=== PATIENT | male | born 1990 | race Asian ===

== ENCOUNTER 2017-10-19 19:52 | Emergency (ER) | payer MEDICAID ==
[~2017-10-19] VITALS: Ht 177.8 cm; Wt 72.0 kg
[~2017-10-19 19:52] MED LIST: IBUP-1984 PO
[2017-10-19] MEDS ORDERED: normal saline 1000ml 1,000 ML IV ONE (20:50)
[2017-10-19 21:10] LABS: ABG BASE EXCESS -1.9 mmol/L (-2.0-3.0); ABG HCO3 23.1 mmol/L (22.0-26.0); ABG OXYGEN SATURATION 94.2 % (95-98); ABG PCO2 (T) 40.1 mmHg (35.0-48.0); ABG PH (T) 7.378 (7.350-7.450); ABG PO2 (T) 79.7 mmHg (83-108); ALLEN'S TEST Positive; FCOHb 1.1 % (0.5-1.5); FMetHb 0.3 % (0.3-1.12); FO2Hb 92.9 % (94-100); RESPIRATORY RATE (OBSERVED) 14 b/min; TOTAL HEMOGLOBIN 13.2 G/dl (14.0-18.0)
[2017-10-19] MEDS ORDERED: LORazepam 2 mg/ml vial IV ONE (21:15)
[2017-10-19 22:06] LABS: BASOPHILS % (AUTO) 0.4 % (0-1); EOSINOPHILS # (AUTO) 0.2 X10'3 (0-0.9); EOSINOPHILS % (AUTO) 2.3 % (0-6); HEMATOCRIT 39.5 % (42.0-52.0); HEMOGLOBIN 13.3 g/dl (14.0-17.9); LYMPHOCYTES # (AUTO) 2.1 X10'3 (1.1-4.8); LYMPHOCYTES % (AUTO) 21.9 % (21-51); MEAN CORPUSCULAR HGB CONC 33.7 % (33.0-36.5); MEAN CORPUSCULAR VOLUME 80.2 FL (78-98); MEAN PLATELET VOLUME 8.4 FL (7.4-10.4); MONOCYTES # (AUTO) 0.9 X10'3 (0-0.9); MONOCYTES % (AUTO) 9.6 % (2-12); NEUTROPHILS # (AUTO) 6.4 X10'3 (1.8-7.7); NEUTROPHILS % (AUTO) 65.8 % (42-75); PLATELET COUNT 186 X10'3 (140-440); RED BLOOD COUNT 4.93 X10'6 (4.70-6.10); RED CELL DISTRIBUTION WIDTH 13.2 % (11.5-14.5); WHITE BLOOD COUNT 9.7 X10'3 (4.5-11.0)
[2017-10-19] MEDS ORDERED: levetiracetam inj 1,500 MG in normal saline 100ml IV soln 85 ML IV STA (22:17)
[2017-10-19 22:23] LABS: ALANINE AMINOTRANSFERASE 22 U/L (12-78); ALBUMIN 3.4 G/DL (3.4-5.0); ALBUMIN/GLOBULIN RATIO 0.9 (1.1-1.5); ALKALINE PHOSPHATASE 69 IU/L (46-116); ANION GAP 9 (8-16); ASPARTATE AMINO TRANSFERASE 17 U/L (10-37); BILIRUBIN,TOTAL 1.3 MG/DL (0.1-1.0); BLOOD UREA NITROGEN 14 MG/DL (7-18); BUN/CREATININE RATIO 11.1 (5.4-32.0); CALCIUM 8.2 MG/DL (8.5-10.1); CHLORIDE 102 MMOL/L (99-107); CREATININE 1.26 MG/DL (0.60-1.10); GLUCOSE 255 MG/DL (70-104); POTASSIUM 4.2 MMOL/L (3.5-5.1); SODIUM 137 MMOL/L (135-145); TOTAL CARBON DIOXIDE 26.4 MMOL/L (24-32); TOTAL PROTEIN 7.1 G/DL (6.4-8.2); eGFR 69 ML/MIN
[2017-10-19 22:25] LABS: CREATINE KINASE 224 U/L (39-308); ETHANOL < 0.010 GM/DL (0.0-0.010); MAGNESIUM 1.9 MG/DL (1.5-2.4); PHENYTOIN (DILANTIN) 0.6 UG/ML (10.0-20.0); PHOSPHORUS 3.9 MG/DL (2.3-4.5)
[2017-10-19] MEDS ORDERED: levetiracetam 250mg tablet PO ONE (23:20)
[2017-10-19 23:49] VITALS: BP 123/94
[2017-10-20] MEDS ORDERED: KEP500T PO
[2017-10-22] MEDS ORDERED: GLIP10TA11 PO (03:51)
[2017-10-22] MEDS ORDERED: LORA1TAB PO (03:51)
[2017-10-22] MEDS ORDERED: METF500T PO (03:51)
== END 2017-10-20 00:33 | disposition home or self-care (01) ==
LOC: ER 19:54
DX: G40.89 Other seizures (principal); E11.9 Type 2 diabetes mellitus without complications; Z79.4 Long term (current) use of insulin; Z79.899 Other long term (current) drug therapy
CPT/HCPCS: 36415; 36600; 70450; 71045; 72070; 72100; 80053; 80185; 80320; 82140; 82550; 82803; 82948; 83735; 84100; 84484; 85018; 85025; 93005; 96374; 99285; J1953; J2060; J7030

== ENCOUNTER 2019-11-29 16:53 | Emergency (ER) | payer MEDICAID ==
[~2019-11-29] VITALS: Ht 177.8 cm; Wt 66.9 kg
[~2019-11-29 16:53] MED LIST changes: +GLIP10TA11 PO; +KEP500T PO
[2019-11-29] MEDS ORDERED: normal saline 1000ML IV soln IVB ONE (18:05)
[2019-11-29 18:10] LABS: BASOPHILS % (AUTO) 0.5 % (0-1); EOSINOPHILS % (AUTO) 0.5 % (0-6); HEMATOCRIT 44.4 % (42.0-52.0); HEMOGLOBIN 14.9 g/dl (14.0-17.9); LYMPHOCYTES # (AUTO) 1.9 X10'3 (1.1-4.8); LYMPHOCYTES % (AUTO) 30.5 % (21-51); MEAN CORPUSCULAR HEMOGLOBIN 27.8 PG (27.0-31.0); MEAN CORPUSCULAR HGB CONC 33.5 g/dL (33.0-36.5); MEAN PLATELET VOLUME 8.4 FL (7.4-10.4); MONOCYTES # (AUTO) 0.4 X10'3 (0-0.9); MONOCYTES % (AUTO) 6.9 % (2-12); NEUTROPHILS # (AUTO) 3.8 X10'3 (1.8-7.7); NEUTROPHILS % (AUTO) 61.6 % (42-75); PLATELET COUNT 217 X10'3 (140-440); RED BLOOD COUNT 5.34 X10'6 (4.70-6.10); RED CELL DISTRIBUTION WIDTH 13.5 % (11.5-14.5); WHITE BLOOD COUNT 6.2 X10'3 (4.5-11.0)
[2019-11-29 18:33] LABS: ALANINE AMINOTRANSFERASE 22 U/L (12-78); ALBUMIN 3.8 G/DL (3.4-5.0); ALBUMIN/GLOBULIN RATIO 1.1 (1.1-1.5); ALKALINE PHOSPHATASE 101 IU/L (46-116); ANION GAP 9 (8-16); ASPARTATE AMINO TRANSFERASE 12 U/L (10-37); BILIRUBIN,TOTAL 0.9 MG/DL (0.1-1.0); BLOOD UREA NITROGEN 16 MG/DL (7-18); BUN/CREATININE RATIO 14.3 (5.4-32.0); CALCIUM 8.8 MG/DL (8.5-10.1); CHLORIDE 97 MMOL/L (99-107); CREATININE 1.12 MG/DL (0.60-1.10); POTASSIUM 4.5 MMOL/L (3.5-5.1); SODIUM 131 MMOL/L (135-145); TOTAL CARBON DIOXIDE 24.7 MMOL/L (24-32); TOTAL PROTEIN 7.2 G/DL (6.4-8.2); eGFR 78 ML/MIN
[2019-11-29 18:39] LABS: GLUCOSE 524 MG/DL (70-104)
[2019-11-29] MEDS ORDERED: normal saline 1000ml 1,000 ML IV ONE (18:40)
[2019-11-29 18:53] LABS: CLARITY,URINE CLEAR (Clear); COLOR,URINE YELLOW (Yellow); GLUCOSE, URINE >=1000 mg/dl (Neg); KETONES,URINE NEGATIVE (Neg); LEUKOCYTE ESTERASE ,URINE NEGATIVE (Neg); NITRITES, URINE NEGATIVE (Neg); OCCULT BLOOD,URINE NEGATIVE (Neg); PROTEIN,URINE NEGATIVE (Neg); UA COLLECTION TYPE URINAL; UROBILINOGEN,URINE 0.2 E.U/dL (0.2-1.0)
[2019-11-29 19:00] LABS: BACTERIA,URINE NONE SEEN /HPF (Neg); RBC,URINE NONE SEEN /HPF (0-2); SQUAMOUS EPITHELIAL CELL,UR FEW /LPF (FEW); WBC,URINE NONE SEEN /HPF (0-4)
[2019-11-29] MEDS ORDERED: insulin regular, human 10 units/0.1 ml syringe SQ ONE (19:00)
[2019-11-29] MEDS ORDERED: insulin regular, human U-100 3ml vial - multi-dose SQ ONE (19:05)
[2019-11-29] MEDS ORDERED: INSU100I31 SUBCUT (19:57)
[2019-11-29 20:06] VITALS: BP 108/90
== END 2019-11-29 20:07 | disposition left against medical advice (07) ==
LOC: ER 16:53
DX: E11.65 Type 2 diabetes mellitus with hyperglycemia (principal); R11.2 Nausea with vomiting, unspecified; Z79.4 Long term (current) use of insulin; Z79.899 Other long term (current) drug therapy
CPT/HCPCS: 36415; 80053; 81001; 82948; 85025; 96360; 96372; 99283; J7030; J1815

== ENCOUNTER 2023-04-22 15:32 | Emergency (ER) | payer MEDICAID ==
[~2023-04-22] VITALS: Ht 177.8 cm; Wt 77.0 kg
[~2023-04-22 15:32] MED LIST changes: +INSU100I31 SUBCUT
[2023-04-22 15:47] VITALS: BP 115/83; PULSE 93; TEMP 97.8; O2SAT 98
[2023-04-22] MEDS ORDERED: ketorolac trometh inj. 60 MG/2 ML VIAL IM ONE (15:50)
[2023-04-22] MEDS ORDERED: CYCL-1 PO (15:53)
[2023-04-22] MEDS ORDERED: NAPR-56 PO (15:53)
[2023-04-22 16:10] VITALS: RESP 16
== END 2023-04-22 16:24 | disposition home or self-care (01) ==
LOC: ER 15:33
DX: M54.2 Cervicalgia (principal); M54.6 Pain in thoracic spine; E11.9 Type 2 diabetes mellitus without complications; Z79.899 Other long term (current) drug therapy; V89.2XXA Person injured in unspecified motor-vehicle accident, traffic, initial encounter; Y93.89 Activity, other specified; Y92.89 Other specified places as the place of occurrence of the external cause; Y99.8 Other external cause status
CPT/HCPCS: 96372; 99283; J1885

== ENCOUNTER 2023-07-29 13:34 | Emergency (ER) | payer MEDICAID ==
[~2023-07-29] VITALS: Ht 177.8 cm; Wt 77.9 kg
[~2023-07-29 13:34] MED LIST changes: +CYCL-1 PO
[2023-07-29 14:01] VITALS: BP 123/84; PULSE 86; TEMP 98.5; O2SAT 98
[2023-07-29] MEDS ORDERED: ketorolac trometh inj. 60 MG/2 ML VIAL IM ONE (15:35)
[2023-07-29] MEDS: dexamethasone sod phosphate 10mg/ml inj IM STA (15:42)
[2023-07-29 15:43] VITALS: RESP 18
[2023-07-29] MEDS: ketorolac tromethamine 15mg/ml inj. IM ONE (15:43)
[2023-07-29] MEDS: HYDROcodone/acetaminophen 10/325mg tab PO ONE (15:43)
[2023-07-29] MEDS: ondansetron 4mg rapidly disintigrating tab PO ONE (15:44)
[2023-07-29] MEDS: cyclobenzaprine 10mg tablet PO ONE (15:44)
[2023-07-29] MEDS ORDERED: HYDR-3965 PO (15:53)
[2023-07-29] MEDS ORDERED: CYCL-1 PO (15:53)
== END 2023-07-29 16:03 | disposition home or self-care (01) ==
LOC: ER 13:34
DX: M54.59 Other low back pain (principal); E11.9 Type 2 diabetes mellitus without complications; Z79.899 Other long term (current) drug therapy; V98.8XXA Other specified transport accidents, initial encounter; Y93.89 Activity, other specified; Y92.89 Other specified places as the place of occurrence of the external cause; Y99.8 Other external cause status
CPT/HCPCS: 96372; 99284; J1100; J1885

== ENCOUNTER 2023-08-02 12:46 | Emergency (ER) | payer MEDICAID ==
[~2023-08-02] VITALS: Ht 177.8 cm; Wt 79.2 kg
[~2023-08-02 12:46] MED LIST changes: +HYDR-3965 PO
[2023-08-02 12:48] VITALS: BP 115/71; PULSE 107; RESP 16; TEMP 98.2; O2SAT 95
[2023-08-02] MEDS ORDERED: NAPR-56 PO (13:27)
== END 2023-08-02 13:49 | disposition home or self-care (01) ==
LOC: ER 12:47
DX: S39.012A Strain of muscle, fascia and tendon of lower back, initial encounter (principal); E11.9 Type 2 diabetes mellitus without complications; Z79.899 Other long term (current) drug therapy; Z88.6 Allergy status to analgesic agent; V89.2XXA Person injured in unspecified motor-vehicle accident, traffic, initial encounter; Y93.89 Activity, other specified; Y92.89 Other specified places as the place of occurrence of the external cause; Y99.8 Other external cause status
CPT/HCPCS: 99283

== ENCOUNTER 2023-12-11 06:08 | Emergency (ER) | payer MEDICAID ==
[~2023-12-11] VITALS: Ht 177.8 cm; Wt 74.0 kg
[~2023-12-11 06:08] MED LIST changes: -HYDR-3965 PO
[2023-12-11 06:38] LABS: BILIRUBIN,URINE NEGATIVE (Neg); CLARITY,URINE CLEAR (Clear); COLOR,URINE YELLOW (Yellow); GLUCOSE, URINE >=1000 mg/dl (Neg); KETONES,URINE TRACE mg/dl (Neg); LEUKOCYTE ESTERASE ,URINE NEGATIVE (Neg); NITRITES, URINE NEGATIVE (Neg); OCCULT BLOOD,URINE NEGATIVE (Neg); PROTEIN,URINE TRACE mg/dl (Neg); UROBILINOGEN,URINE 0.2 E.U/dL (0.2-1.0)
[2023-12-11 06:40] LABS: UA COLLECTION TYPE CLN CATCH MIDSTREAM
[2023-12-11 06:47] LABS: RBC,URINE NONE SEEN /HPF (0-2)
[2023-12-11 06:48] LABS: BACTERIA,URINE FEW /HPF (Neg); MUCUS STRANDS MODERATE /LPF (Neg); SQUAMOUS EPITHELIAL CELL,UR FEW /LPF (FEW)
[2023-12-11 06:54] VITALS: BP_SYST 117
[2023-12-11] MEDS ORDERED: LANTUS SQ (06:57)
[2023-12-11 07:01] LABS: BASOPHILS % (AUTO) 0.5 % (0-1); EOSINOPHILS # (AUTO) 0.1 X10'3 (0-0.9); EOSINOPHILS % (AUTO) 0.9 % (0-6); HEMATOCRIT 47.1 % (42.0-52.0); HEMOGLOBIN 15.7 g/dl (14.0-17.9); LYMPHOCYTES # (AUTO) 2.2 X10'3 (1.1-4.8); MEAN CORPUSCULAR HEMOGLOBIN 26.6 PG (27.0-31.0); MEAN CORPUSCULAR HGB CONC 33.2 g/dL (33.0-36.5); MONOCYTES # (AUTO) 0.4 X10'3 (0-0.9); MONOCYTES % (AUTO) 6.1 % (2-12); NEUTROPHILS # (AUTO) 4.1 X10'3 (1.8-7.7); NEUTROPHILS % (AUTO) 60.5 % (42-75); PLATELET COUNT 222 X10'3 (140-440); RED BLOOD COUNT 5.89 X10'6 (4.70-6.10); RED CELL DISTRIBUTION WIDTH 13.3 % (11.5-14.5); WHITE BLOOD COUNT 6.8 X10'3 (4.5-11.0)
[2023-12-11 07:10] LABS: ALANINE AMINOTRANSFERASE 22 U/L (12-78); ALBUMIN/GLOBULIN RATIO 1.1 (1.1-1.5); ALKALINE PHOSPHATASE 96 IU/L (46-116); ANION GAP 7 (8-16); ASPARTATE AMINO TRANSFERASE 10 U/L (10-37); BILIRUBIN,TOTAL 0.8 MG/DL (0.1-1.0); BLOOD UREA NITROGEN 18 MG/DL (7-18); BUN/CREATININE RATIO 17.8 (10.0-20.0); CALCIUM 9.1 MG/DL (8.5-10.1); CHLORIDE 103 MMOL/L (99-107); CREATININE 1.01 MG/DL (0.60-1.10); GLUCOSE 349 MG/DL (70-104); LIPASE 41 U/L (16-77); POTASSIUM 3.9 MMOL/L (3.5-5.1); SODIUM 136 MMOL/L (135-145); TOTAL CARBON DIOXIDE 25.9 MMOL/L (24-32); TOTAL PROTEIN 7.7 G/DL (6.4-8.2); eCRCL 108 ML/MIN; eGFR 86 ML/MIN
[2023-12-11] MEDS: cephalexin 250mg capsule PO ONE (07:49)
[2023-12-11] MEDS: normal saline 1000ml 1,000 ML IV ONE (07:50)
[2023-12-11 08:55] LABS: ACETAMINOPHEN < 2.0 UG/ML (10-30)
[2023-12-11] MEDS ORDERED: CEPH-585 PO (10:41)
[2023-12-11 11:03] VITALS: BP_DIAS 120; PULSE 83; RESP 14; TEMP 98.2; O2SAT 75
== END 2023-12-11 11:05 | disposition home or self-care (01) ==
LOC: ER 06:09
DX: E11.65 Type 2 diabetes mellitus with hyperglycemia (principal); N39.0 Urinary tract infection, site not specified; Z79.899 Other long term (current) drug therapy; Z79.1 Long term (current) use of non-steroidal anti-inflammatories (NSAID); Z79.4 Long term (current) use of insulin
CPT/HCPCS: 36415; 80053; 80329; 81001; 82948; 83690; 85025; 87088; 96360; 96361; 99283; J7030

== ENCOUNTER 2024-09-28 18:40 | Emergency (ER) | payer MEDICAID ==
[~2024-09-28] VITALS: Ht 177.8 cm; Wt 74.3 kg
[~2024-09-28 18:40] MED LIST changes: -GLIP10TA11 PO; -KEP500T PO; +LANTUS SQ
[2024-09-28 18:59] VITALS: BP 112/79; PULSE 109; RESP 16; TEMP 98.2; O2SAT 98
== END 2024-09-28 22:39 | disposition left against medical advice (07) ==
LOC: ER 18:41
DX: S61.051A Open bite of right thumb without damage to nail, initial encounter (principal); Z53.21 Procedure and treatment not carried out due to patient leaving prior to being seen by health care provider; W53.21XA Bitten by squirrel, initial encounter; Y93.89 Activity, other specified; Y92.89 Other specified places as the place of occurrence of the external cause; Y99.8 Other external cause status

== ENCOUNTER 2025-02-13 15:50 | Emergency (ER) | payer MEDICAID ==
[~2025-02-13] VITALS: Ht 172.7 cm; Wt 70.0 kg
[2025-02-13 15:55] VITALS: BP 136/89; PULSE 100; TEMP 98.2; O2SAT 98
[2025-02-13 16:34] VITALS: RESP 18
[2025-02-13] MEDS: HYDROcodone/acetaminophen 10/325mg tab PO ONE (16:34)
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
--- NOTE | 2025-02-13 16:41 | RADIOLOGY REPORT ---
CLINICAL INDICATION: PAIN BOTH LOWER LEGS TECHNIQUE: 2 radiographic views of the right tibia and fibula were obtained. Comparison: DI TIB/FIB 2 VWS on DOS: 02/13/25 FINDINGS/IMPRESSION: There is no evidence of acute fracture or dislocation. The visualized joint space is well maintained. The alignment is anatomical. There is no radiopaque foreign body.
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
[2025-02-13] MEDS ORDERED: HYDR-3972 PO (17:11)
== END 2025-02-13 17:23 | disposition home or self-care (01) ==
LOC: ER 15:51
DX: M79.604 Pain in right leg (principal); M79.605 Pain in left leg; E11.65 Type 2 diabetes mellitus with hyperglycemia; V89.2XXA Person injured in unspecified motor-vehicle accident, traffic, initial encounter; Y93.89 Activity, other specified; Y92.410 Unspecified street and highway as the place of occurrence of the external cause; Y99.8 Other external cause status
CPT/HCPCS: 71046; 73590; 82948; 99284

== ENCOUNTER 2025-04-10 14:29 | Emergency (ER) | payer MEDICAID ==
[~2025-04-10] VITALS: Ht 177.8 cm; Wt 76.1 kg
[2025-04-10 14:35] VITALS: BP 119/77; PULSE 100; RESP 18; TEMP 98.4; O2SAT 99
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
== END 2025-04-10 16:56 | disposition left against medical advice (07) ==
LOC: ER 14:30
DX: S93.692A Other sprain of left foot, initial encounter (principal); S93.691A Other sprain of right foot, initial encounter; E11.9 Type 2 diabetes mellitus without complications; Z79.4 Long term (current) use of insulin; Z79.899 Other long term (current) drug therapy; X58.XXXA Exposure to other specified factors, initial encounter; Y93.89 Activity, other specified; Y92.89 Other specified places as the place of occurrence of the external cause; Y99.8 Other external cause status
CPT/HCPCS: 99282

== ENCOUNTER 2025-05-08 21:01 | Emergency (ER) | payer OTHER, MEDICAID ==
[~2025-05-08] VITALS: Ht 177.8 cm; Wt 76.0 kg
[2025-05-08 21:11] VITALS: BP 131/85; PULSE 104; RESP 16; TEMP 99; O2SAT 98
[2025-05-08] MEDS: TETanus/Pertussis (Acell)/Diphther VAC/PF (Tdap-Adult) 0.5ml syringe IMVAC ONE (22:04)
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
== END 2025-05-08 22:38 | disposition home or self-care (01) ==
LOC: ER 21:01
DX: S40.022A Contusion of left upper arm, initial encounter (principal); E11.9 Type 2 diabetes mellitus without complications; Z79.899 Other long term (current) drug therapy; W54.0XXA Bitten by dog, initial encounter; Y93.89 Activity, other specified; Y92.89 Other specified places as the place of occurrence of the external cause; Y99.8 Other external cause status
CPT/HCPCS: 90471; 90715; 99283